=== PATIENT | female | born 1975 | race Caucasian/White ===

== ENCOUNTER → 2017-11-08 15:46 | Outpatient (CLI) | payer MEDICAID, SELFPAY | PROVIDERS: Family Provider Student in an Organized Health Care Education/Training Program; PCP Student in an Organized Health Care Education/Training Program; Visit Provider Otolaryngology Otolaryngology/Facial Plastic Surgery | DX: J03.90 Acute tonsillitis, unspecified (principal) | CPT/HCPCS: 87070 ==

== ENCOUNTER 2017-12-30 17:24 | Emergency (ER) | payer MEDICAID, SELFPAY ==
[2017-12-30 17:24] VITALS: BP 127/84; PULSE 101; RESP 16; TEMP 36.7; BMI 30.7
--- NOTE | 2017-12-30 17:37 | RAD_ITS ---
STUDY: X-RAY - LEFT FOOT CLINICAL: Female, 42 years old. left foot pain x 2 days, along 5th mt TECHNIQUE: 3 view(s) of the foot. COMPARISON: None. FINDINGS: There is a plantar calcaneal spur. Normal visualized subtalar, talonavicular, calcaneocuboid, tarsal and tarsometatarsal articulations. There is a metal sideplate transfixing the head of the first metatarsal bone to the base of the first proximal phalanx. Hardware appears intact. There are cortical screws holding the plate in place. Normal metatarsophalangeal joint of the great toe. Normal tibial and fibular sesamoid bones. Normal interphalangeal joint of the great toe. Normal phalanges of the great toe. Normal second through fifth metatarsophalangeal joints. Normal interphalangeal joints and phalanges of the lesser toes. The soft tissue structures are unremarkable. RAD/Foot min 3 Views IMPRESSION: There is a metal sideplate transfixing the head of the first metatarsal bone to the base of the first proximal phalanx. Hardware appears intact. There are cortical screws holding the plate in place. There are no acute findings. There is a calcaneal spur. Electronically Signed: Jm Archer MD at 18:21 EDT , Service support ,
--- NOTE | 2017-12-30 18:03 | ED.DCSUM_ITS ---
- ER Visit Summary Date of Service: 12/30/17 Chief Complaint: Left foot pain History of Present Illness: The patient is a 42 F who has had left foot pain for 3 days. Denies any specific injury. She has been using Tylenol and ice at home. She has a history of a first metatarsal repair but no other foot surgeries. Physical Examination: Vital signs reviewed. Left foot reveals tenderness to palpation at the distal fourth and fifth metatarsal area. No deformities. She does have painful range of motion. Pulses and sensation intact Test Results: X-rays per my interpretation are negative for fracture Emergency Department Course and Treatment: Patient will continue ice and Tylenol at home. She has multiple medication allergies. She does have a boot that she will wear. 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 It may contain incorrect words, spelling, and punctuation that were not noted in review of the chart prior to signing ED Disposition - Plan for ED Patient: Chief Complaint: Lower Extremity Injury Referrals: Lawson Tenorio DO [Primary Care Provider] -
--- NOTE | 2017-12-30 18:04 | ED.DEP ---
ED Disposition - Plan for ED Patient: Disposition: Home or Assisted Living Chief Complaint: Lower Extremity Injury Instructions: ED Contusion Foot Referrals: Lawson Tenorio DO [Primary Care Provider] -
== END 2017-12-30 18:50 | disposition home or self-care (01) ==
PROVIDERS: Emergency Provider Emergency Medicine; Family Provider Student in an Organized Health Care Education/Training Program; PCP Student in an Organized Health Care Education/Training Program
DX: M79.672 Pain in left foot (principal); J45.909 Unspecified asthma, uncomplicated; J44.9 Chronic obstructive pulmonary disease, unspecified; Z72.0 Tobacco use; Z79.51 Long term (current) use of inhaled steroids; Z79.1 Long term (current) use of non-steroidal anti-inflammatories (NSAID)
CPT/HCPCS: 73630; 99282

== ENCOUNTER → 2018-12-04 | Outpatient (CLI) | payer MEDICAID, SELFPAY ==
[2018-12-04 08:07] VITALS: BMI 30.7
--- NOTE | 2018-12-04 11:10 | RAD_ITS ---
STUDY: X-RAY - LEFT KNEE REASON FOR EXAM: Female, 43 years old. Pain TECHNIQUE: 4 view(s) of the knee. COMPARISON: None. FINDINGS: Normal visualized distal femur. Normal visualized proximal tibia and fibula. Normal proximal tibiofibular articulation. Normal medial femorotibial compartment. Normal lateral femorotibial compartment. Normal patellofemoral articulation. The soft tissue structures are unremarkable. RAD/Knee 4 or More Views IMPRESSION: Normal x-ray examination of the knee. Electronically Signed: Moris Garcia MD at 16:49 EDT Tel , Service support ,
== END | disposition home or self-care (01) ==
LOC: HPRAD 11:09
PROVIDERS: Family Provider Student in an Organized Health Care Education/Training Program; PCP Student in an Organized Health Care Education/Training Program; Referring Provider Orthopaedic Surgery; Visit Provider Orthopaedic Surgery
DX: M25.562 Pain in left knee (principal)
CPT/HCPCS: 73564

== ENCOUNTER 2021-04-09 13:49 | Emergency (ER) | payer MEDICAID, SELFPAY ==
[2021-04-09 13:50] VITALS: BP 140/90; PULSE 90; RESP 20; TEMP 36.4; O2SAT 100; BMI 34.9
[2021-04-09 14:01] VITALS: BP 140/90; PULSE 90; RESP 20; TEMP 36.4; O2SAT 100
--- NOTE | 2021-04-09 14:07 | CT_ITS ---
EXAM: CT ABDOMEN AND PELVIS WITHOUT INTRAVENOUS CONTRAST : 1975 CLINICAL INDICATION: Kidney Stone TECHNIQUE: Helically acquired images were obtained of the abdomen and pelvis without intravenous contrast. This CT exam was performed using one or more of the following dose reduction techniques: automated exposure control, adjustment of the mA and/or kV according to patient size, and/or use of iterative reconstruction technique. This report was created using my6sense report generation technology. COMPARISON: None. FINDINGS: LOWER THORAX: Unremarkable. Lung bases are clear. No cardiomegaly. No significant pericardial effusion. ABDOMEN: LIVER: Unremarkable. Homogeneous. GALLBLADDER AND BILE DUCTS: Unremarkable. No calcified gallstones. No gallbladder distention or wall edema. No intra- or extrahepatic biliary ductal dilation. PANCREAS: Unremarkable. No focal cystic mass. SPLEEN: Unremarkable. Normal size without focal cystic or solid mass. ADRENALS: Unremarkable. No nodules. KIDNEYS AND URETERS: Unremarkable. Normal renal size and position. No hydronephrosis. STOMACH AND BOWEL: Unremarkable. No stomach or bowel distention. No focal inflammatory change. PELVIS: APPENDIX: No evidence of acute appendicitis. BLADDER: Unremarkable. REPRODUCTIVE: Unremarkable as visualized. No mass. ABDOMEN and PELVIS: INTRAPERITONEAL SPACE: Unremarkable. No ascites or other fluid collection. No free air. BONES/JOINTS: Unremarkable. No suspicious lytic or blastic abnormality. SOFT TISSUES: Unremarkable. No discrete abdominal or pelvic wall hernia. VASCULATURE: Unremarkable. Abdominal aorta is non-dilated. LYMPH NODES: Unremarkable. No enlarged lymph nodes. TUBES, LINES AND DEVICES: There is an intrauterine device in place. CT/Abdomen/Pelvis without Cont IMPRESSION: No acute findings in the abdomen or pelvis. Individualized dose optimization techniques were used for this CT. at 1517 Reported and signed by: Tom Paul MD Electronically Signed: Tom Paul MD at 15:16 EDT Tel , Service support ,
--- NOTE | 2021-04-09 14:08 | EDS_ITS ---
HPI History of Present Illness Chief Complaint: Flank Pain Informant: patient Narrative Narrative: 46-year-old female presents the emergency department after being referred here by urgent care. She tells me for 4 days she has had pain in her left flank. Nonradiating. Worse with certain movements. She states it has been constant but getting worse. The patient also states that she has seen some blood in her urine. No previous history of kidney stones. She does note a history of renal cyst. No nausea vomiting diarrhea. No fevers. No rashes. [facility] Medical History Asthma Bipolar 1 disorder Chronic kidney disease (CKD) Home Medications fluoxetine 40 mg PO DAILY 12/19/13 [History Last Taken Unknown] fluticasone propionate 2 spray NASAL DAILY 07/08/16 [History Last Taken Unknown] multivitamin 1 ea PO DAILY 07/08/16 [History Last Taken Unknown] scopolamine base 1 patch TRANSDERM. Q3D PRN 07/08/16 [History Last Taken Unknown] epinephrine 0.3 mg IM X1 12/30/17 [History Last Taken Unknown] pravastatin 40 mg PO DAILY 12/30/17 [History Last Taken Unknown] albuterol sulfate 90 mcg/actuation aerosol inhaler 1 puff INHALATION Q4H PRN g 12/04/18 [History Last Taken Unknown] aripiprazole 30 mg tablet 30 mg PO DAILY 12/04/18 [History Last Taken Unknown] buspirone 15 mg tablet PO 30 Days #60 tab 12/04/18 [History Last Taken Unknown] diphenhydramine HCl 25 mg capsule 25 mg PO Q8H PRN 12/04/18 [History Last Taken Unknown] mometasone-formoterol HFA 100 mcg-5 mcg/actuation aerosol inhaler 2 puff INHALATION BID 12/04/18 [History Last Taken Unknown] oxybutynin chloride 5 mg tablet 5 mg PO DAILY 30 Days #90 tab 12/04/18 [History Last Taken Unknown] carbamazepine [Tegretol] 200 mg PO DAILY 04/09/21 [History Last Taken Unknown] Allergy/AdvReac Type Severity Reaction Status Date / Time meloxicam [From Mobic] Allergy Unknown Verified 04/09/21 13:58 tramadol HCl [From Ultram] Allergy Unknown Verified 04/09/21 13:58 acetaminophen [From Percocet] AdvReac Swelling Verified 04/09/21 13:58 oxycodone [From Percocet] AdvReac Swelling Verified 04/09/21 13:58 Social History (Updated 04/09/21 @ 14:[address] Saad Mcconnell, DO) Smoking Status: Current some day smoker tobacco type: e-cigarettes substance use type: does not use ROS ROS ED Constitutional Constitutional ED: Denies chills or weight loss Eyes Eyes: Denies change in vision or diplopia ENT ENT ED: Denies ear pain, rhinorrhea or sore throat Cardiovascular Cardiovascular: Denies chest pain, orthopnea, palpitations or racing heartbeat Respiratory/Chest Respiratory/Chest: Denies cough, dyspnea or orthopnea Gastrointestinal Gastrointestinal: Denies abdominal pain, diarrhea, nausea or vomiting Genitourinary Genitourinary ED: Denies dysuria, hematuria or urinary frequency Musculoskeletal Musculoskeletal: Reports back pain; Denies arthralgias or myalgias Integumentary Denies abscess or rash Neurologic Neurologic: Denies headache(s) or weakness Psychiatric Psychiatric: Denies anxiety, depression, suicidal ideation or suicidal thoughts Endocrine Endocrinology: Denies polydipsia, polyphagia or polyuria Allergic/Immunologic Allergic/Immunologic ED: Denies mouth swelling, tongue swelling or urticaria EXAM Physical Exam Const Vital Signs: 04/09/21 13:50 04/09/21 14:01 Temperature 97.5 F L 97.5 F L Temperature Source Temporal Temporal Pulse Rate 90 90 Respiratory Rate 20 H 20 H Blood Pressure 140/90 H 140/90 H Blood Pressure Mean 106 106 Pulse Ox 100 100 Oxygen Delivery Method Room Air Room Air Positive well nourished, well developed and obese General Appearance ED: well developed Nutritional Appearance: obese HEENT Reports normocephalic, head/scalp atraumatic and moist mucous membranes Eyes PERRL and EOMs intact bilaterally Neck no lymphadenopathy, supple and no JVD Resp normal respiratory effort and clear to auscultation bilaterally Cardio regular rate, regular rhythm and no murmurs GI normal to inspection, nondistended, normoactive bowel sounds and non-tender Palpation: soft Back/Spine normal ROM Back/Spine Narrative: Tender to palpation over the left high lumbar paraspinal musculature. No distinct CVA tenderness. No visualized rashes. Extremity normal to inspection General Extremety ED: Negative for edema General Extremity: Negative for edema Neuro oriented x3 and CN's II-XII intact bilaterally Sensorium / Orientation: alert Motor Exam: strength 5/5 throughout Psych mental status grossly normal Mood & Affect: Negative for depressed or tearful Skin no rashes or lesions noted and no wounds MDM MDM MDM Narrative Medical decision making narrative: Basic blood work showed a white count of 6.0. Creatinine 0.77. Urinalysis does not show any hematuria or overt infection. CT the abdomen pelvis with old oral or IV contrast was obtained to evaluate for the presence of ureterolithiasis. This was negative. Patient received Toradol for pain. At this point I do not see an obvious cause for the patient's pain given that it can be brought on with certain movements this could be musculoske letal in nature. Would recommend anti-inflammatories follow-up with primary care. Lab Data Attestation: I reviewed the patient's lab results. Labs: Laboratory Results - last 24 hr 04/09/21 04/09/21 04/09/21 13:55 14:15 14:15 WBC 6.0 RBC 4.40 Hgb 14.2 Hct 40.5 MCV 92.0 MCH 32.3 H MCHC 35.1 RDW Std Deviation 41.0 RDW Coeff of Yue 12.1 Plt Count 213 MPV 10.1 Immature Gran % (Auto) 0.700 Neut % (Auto) 66.2 Lymph % (Auto) 22.6 [place] % (Auto) 7.7 Eos % (Auto) 2.3 Baso % (Auto) 0.5 Absolute Neuts (auto) 4.0 Absolute Lymphs (auto) 1.35 Nucleated RBC % 0 Sodium 137 Potassium 3.8 Chloride 107 Carbon Dioxide 24.0 Anion Gap 6 BUN 9 Creatinine 0.77 Estim Creat Clear Calc 85.46 Est GFR (MDRD) Af Amer 103 Est GFR (MDRD) Non-Af 85 BUN/Creatinine Ratio 11.6 Glucose 105 Calcium 9.0 Urine Color Yellow Urine Clarity Clear Urine pH 6.5 Ur Specific [place] 1.010 Urine Protein Negative Urine Glucose (UA) Normal Urine Ketones Negative Urine Occult Blood 10 H Urine Nitrite Negative Urine Bilirubin Negative Urine Urobilinogen Normal Ur Leukocyte Esterase Negative Urine RBC 0 SEEN Urine WBC 0 SEEN Ur Squamous Epith Cells 0-5 SEEN Urine Bacteria 0 SEEN Urine Mucus 0 SEEN Discharge Plan Triage Chief Complaint: Flank Pain ED Provider: Saad Mcconnell Dx/Rx/DC Orders Prescriptions: No Action oxybutynin chloride 5 mg tablet 5 mg PO DAILY 30 Days Qty: 90 RF: 0 aripiprazole [Abilify] 30 mg tablet 30 mg PO DAILY RF: 0 diphenhydramine HCl [Benadryl] 25 mg capsule 25 mg PO Q8H PRN (Reason: Allergic Symptoms) RF: 0 buspirone 15 mg tablet PO 30 Days Qty: 60 RF: 0 Dulera 100-5 mcg/actuation HFA aerosol inhaler 2 puff INHALATION BID RF: 0 albuterol sulfate [Ventolin HFA] 90 mcg/actuation HFA aerosol inhaler 1 puff INHALATION Q4H PRN (Reason: Shortness Of Breath) RF: 0 fluoxetine 20 MG capsule 40 mg PO DAILY RF: 0 multivitamin 1 EACH tablet 1 ea PO DAILY RF: 0 scopolamine base 1.5 MG patch 1 patch TRANSDERM. Q3D PRN (Reason: CAR SICKNESS) RF: 0 fluticasone propionate 1 SPRAY spray,suspension 2 spray NASAL DAILY RF: 0 pravastatin 40 MG tablet 40 mg PO DAILY RF: 0 epinephrine 0.3 MG syringe 0.3 mg IM X1 RF: 0 carbamazepine [Tegretol] 200 mg Tablet 200 mg PO DAILY RF: 0 Primary Care Provider: Lawson Tenorio
[2021-04-09 14:11] LABS: Bacteria 0 SEEN /hpf (None Seen); Mucous, Urine 0 SEEN /hpf (<or=2+); Red Blood Cells-Urine 0 SEEN /hpf (0-5); White Blood Cells 0 SEEN /hpf (0-5)
[2021-04-09 14:13] LABS: Color, Urine Yellow (Yellow); Glucose, Dipstick Normal (Normal); Ketone-Dipstick Negative (Negative); Leukocyte Esterase-Dipstick Negative /ul (Negative); Nitrite-Dipstick Negative (Negative); Occult Blood-Urine 10 /ul (Negative); Protein-Dipstick Negative (Negative); Urine Bilirubin Dipstick Negative (Negative); Urine Clarity Clear (Clear); Urine Urobilinogen Normal (Normal); Urine pH 6.5 (5.0 - 8.0)
[2021-04-09] MEDS: Ketorolac 30 MG/ML Syringe IV (14:15)
[2021-04-09 14:21] LABS: Squamous Epithelial Cells - UA 0-5 SEEN /hpf (5-10)
[2021-04-09 14:23] LABS: Absolute Lymphocyte Count 1.35 X10^3/uL (0.83-4.51); Basophil# 0.03 X10^3/uL; Basophil% 0.5 % (0-1); Eosinophil# 0.14 X10^3/uL; Eosinophils% 2.3 % (0-5); Hematocrit 40.5 % (37-47); Hemoglobin 14.2 g/dL (12.0-15.0); Lymphocyte # 1.35 X10^3/ul (0.83-4.51); Lymphocyte % 22.6 % (19-41); Mean Corp Hgb Conc 35.1 g/dL (32-36); Mean Corpuscular Hgb 32.3 pg (27.0-32.0); Mean Platelet Vol. 10.1 fl (6.2-12.0); Monocyte# 0.46 X10^3/uL; Monocyte% 7.7 % (0-10); NRBC Flagged by Analyzer 0 % (0-5); Neutrophil # 3.96 X10^3/uL (2.7-7.7); Neutrophil % 66.2 % (47-70); Platelet Count 213 K/mm3 (150-450); RBC Distribution Width CV 12.1 % (11.6-14.6)
[2021-04-09 14:39] LABS: Anion Gap 6 (5-15); BUN 9 mg/dL (7-18); BUN/Creat Ratio 11.6 RATIO (10-20); Chloride 107 mmol/L (98-107); Creatinine, Serum 0.77 mg/dL (0.55-1.02); EST Glomerular Filtration Rate 85 mL/min (>60); Est Glom Filt Rate - Afr Amer 103 mL/min (>60); Estimated Creatinine Clearance 85.46 ml/min; Glucose 105 mg/dL (74-106); Potassium 3.8 mmol/L (3.5-5.1); Sodium Level 137 mmol/L (136-145)
== END 2021-04-09 15:29 | disposition home or self-care (01) ==
PROVIDERS: Emergency Provider Emergency Medicine; PCP Student in an Organized Health Care Education/Training Program
DX: R10.9 Unspecified abdominal pain (principal); F17.209 Nicotine dependence, unspecified, with unspecified nicotine-induced disorders; E66.9 Obesity, unspecified; J45.909 Unspecified asthma, uncomplicated; F31.9 Bipolar disorder, unspecified; Z79.51 Long term (current) use of inhaled steroids; Z79.899 Other long term (current) drug therapy
CPT/HCPCS: 74176; 80048; 81001; 85025; 96374; 99283; A4216

== ENCOUNTER → 2022-06-19 | Outpatient (CLI) | payer MEDICARE, MEDICAID, SELFPAY ==
[2022-06-19 16:56] LABS: D-Dimer Quantitative (DVT/PE) 0.34 FEU/ug/m (0.27-0.49)
== END | disposition home or self-care (01) ==
PROVIDERS: PCP Student in an Organized Health Care Education/Training Program; Visit Provider Emergency Medicine
DX: M54.9 Dorsalgia, unspecified (principal)
CPT/HCPCS: 85379

== ENCOUNTER 2022-06-22 16:35 | Emergency (ER) | payer MEDICARE, MEDICAID, SELFPAY ==
[2022-06-22 16:36] VITALS: BP 143/86; PULSE 109; RESP 14; TEMP 37.4; O2SAT 97; BMI 32.3
--- NOTE | 2022-06-22 17:12 | ED.VIS.DYS ---
HPI History of Present Illness Chief Complaint: Asthma Narrative Narrative: Patient with past medical history of asthma presents with shortness of breath that is not relieved by her inhaler. She has taken prednisone in the past but has not been on it for quite some time. She states her symptoms began last evening around dinnertime. It kept her up all night. She has a cough that may be occasionally productive. She has low-grade fever and increasing shortness of breath. She denies any chest pain with this. No other symptoms. She quit smoking 2 years ago. She presents because of her shortness of breath with history of asthma. [facility] Medical History Asthma Bipolar 1 disorder Chronic kidney disease (CKD) Home Medications fluoxetine 20 mg capsule 40 mg PO DAILY 12/19/13 [History Last Taken Unknown] fluticasone propionate 50 mcg/actuation nasal spray,suspension 2 spray NASAL DAILY 07/08/16 [History Last Taken Unknown] multivitamin 1 ea PO DAILY 07/08/16 [History Last Taken Unknown] scopolamine base 1 mg over 3 days transdermal patch 1 patch TRANSDERM. Q3D PRN CAR SICKNESS 07/08/16 [History Last Taken Unknown] epinephrine 0.3 mg/0.3 mL injection, auto-injector 0.3 mg IM X1 12/30/17 [History Last Taken Unknown] pravastatin 40 mg tablet 40 mg PO DAILY 12/30/17 [History Last Taken Unknown] albuterol sulfate 90 mcg/actuation aerosol inhaler (Ventolin HFA) 1 puff inhalation Q4H PRN Shortness Of Breath 12/04/18 [History Last Taken Unknown] aripiprazole 30 mg tablet (Abilify) 30 mg PO DAILY 12/04/18 [History Last Taken Unknown] buspirone 15 mg tablet PO 30 days #60 tabs 12/04/18 [History Last Taken Unknown] diphenhydramine HCl 25 mg capsule (Benadryl) 25 mg PO Q8H PRN Allergic Symptoms 12/04/18 [History Last Taken Unknown] mometasone-formoterol HFA 100 mcg-5 mcg/actuation aerosol inhaler (Dulera) 2 puff inhalation BID 12/04/18 [History Last Taken Unknown] oxybutynin chloride 5 mg tablet 5 mg PO DAILY 30 days #90 tabs 12/04/18 [History Last Taken Unknown] carbamazepine 200 mg tablet (Tegretol) 200 mg PO DAILY 04/09/21 [History Last Taken Unknown] cyclobenzaprine 10 mg tablet 10 mg PO TID PRN Muscle Spasm #15 TABLETS 04/09/21 [Rx Last Taken Unknown] ketorolac 10 mg tablet 10 mg PO TID PRN pain 5 days #15 tabs 04/09/21 [Rx Last Taken Unknown] prednisone 20 mg tablet 40 mg PO DAILY #14 tabs 06/22/22 [Rx Last Taken Unknown] Allergy/AdvReac Type Severity Reaction Status Date / Time meloxicam [From Mobic] Allergy Unknown Verified 06/22/22 16:38 tramadol HCl [From Ultram] Allergy Unknown Verified 06/22/22 16:38 acetaminophen [From Percocet] AdvReac Swelling Verified 06/22/22 16:38 oxycodone [From Percocet] AdvReac Swelling Verified 06/22/22 16:38 Social History Smoking Status: Current some day smoker tobacco type: e-cigarettes substance use type: does not use ROS ROS ED ROS Narrative Constitutional: No fever, no chills. HEENT: No sore throat. No neck pain. No loss of vision. No rhinorrhea. Cardiovascular: No chest pain. No palpitations. No pedal edema. Respiratory: Occasional cough, positive shortness of breath. Abdominal: No abdominal pain. No nausea. No vomiting. Genitourinary: No dysuria. No hematuria. Musculoskeletal: No myalgias. No arthralgias. Neurologic: No headaches. No dizziness. No lightheadedness. Skin: No rash. No change in color. Psychiatric: No depression. No anxiety. EXAM Physical Exam Narrative Exam Narrative: Afebrile. Vital signs noted. HEENT: Normocephalic. Atraumatic. PERRL, EOMI. Neck soft and supple. No point tenderness or step off. Cardiovascular: Regular rate and rhythm. No murmurs, rubs, or gallops appreciated. Respiratory: No tachypnea. Speaking in full sentences. Moving a good amount of air. Occasional expiratory wheeze. Gastrointestinal: Abdomen soft, nontender, with normoactive bowel sounds. No rebound or guarding. Neurological: Awake. Alert. Nonfocal, nonlateralizing. Skin: No rash. Normal color. No pallor. Musculoskeletal: No pedal edema. Full range of motion extremities. Const Vital Signs: 06/22/22 16:36 06/22/22 17:30 06/22/22 17:36 Temperature 99.4 F H Temperature Source Temporal Pulse Rate 109 H 105 H Respiratory Rate 14 20 H Respiratory Effort Respiratory Pattern Blood Pressure 143/86 H 128/82 H Blood Pressure Mean 105 97 Pulse Ox 97 93 Oxygen Delivery Method Room Air Room Air 06/22/22 17:36 Temperature Temperature Source Pulse Rate Respiratory Rate Respiratory Effort Short of Breath Respiratory Pattern Tachypnea Blood Pressure Blood Pressure Mean Pulse Ox Oxygen Delivery Method Room Air MDM MDM MDM Narrative Medical decision making narrative: Pulse ox is 97% on room air without evidence of hypoxia. Given that her inhalers are not effective, I will obtain a chest x-ray along with upper respiratory swabs. She will be given a DuoNeb aerosolized treatment and prednisone 60 mg orally. Chest x-ray interpreted by myself shows no evidence of pneumonia. I do not feel antibiotics are indicated. Her respiratory swabs are negative. After her prednisone and aerosolized treatment, she feels improved. At this point in time, she will be discharged with a prednisone burst for 7 days of 40 mg. She has enough albuterol inhalers at home. Should I feel she can be discharged safely home with follow-up. Return instructions were reviewed. Disposition is discharged home in stable condition. Radiography Diagnostic Testing: Clinical Impression(s) from Imaging Studies Chest X-Ray 06/22/22 17:14 IMPRESSION: Normal x-ray examination of the chest. Electronically Signed: Manjinder Martinez MD at 17:35 EST , Discharge Plan Triage Chief Complaint: Asthma ED Provider: Aidan Morgan Dx/Rx/DC Orders Clinical Impression: Asthma, URI (upper respiratory infection) Instructions: ED Asthma, Acute (Adult), ED URI, Viral W/ Wheezing (Adult) Prescriptions: New prednisone 20 mg tablet 40 mg PO DAILY Qty: 14 0RF No Action oxybutynin chloride 5 mg tablet 5 mg PO DAILY 30 Days Qty: 90 aripiprazole [Abilify] 30 mg tablet 30 mg PO DAILY diphenhydramine HCl [Benadryl] 25 mg capsule 25 mg PO Q8H PRN (Reason: Allergic Symptoms) buspirone 15 mg tablet PO 30 Days Qty: 60 Dulera 100-5 mcg/actuation HFA aerosol inhaler 2 puff INHALATION BID albuterol sulfate [Ventolin HFA] 90 mcg/actuation HFA aerosol inhaler 1 puff INHALATION Q4H PRN (Reason: Shortness Of Breath) fluoxetine 20 MG capsule 40 mg PO DAILY multivitamin 1 EACH tablet 1 ea PO DAILY scopolamine base 1.5 MG patch 1 patch TRANSDERM. Q3D PRN (Reason: CAR SICKNESS) fluticasone propionate 1 SPRAY spray,suspension 2 spray NASAL DAILY pravastatin 40 MG tablet 40 mg PO DAILY epinephrine 0.3 MG syringe 0.3 mg IM X1 carbamazepine [Tegretol] 200 mg Tablet 200 mg PO DAILY ketorolac 10 mg tablet 10 mg PO TID PRN (Reason: pain) 5 Days Qty: 15 0RF cyclobenzaprine [cyclobenzaprine] 10 MG tablet 10 mg PO TID PRN (Reason: Muscle Spasm) Qty: 15 0RF Primary Care Provider: Lawson Tenorio Referrals: Lawson Tenorio DO [Primary Care Provider] - 3-5 Days if not improving Disposition Disposition: Home, Self Care
--- NOTE | 2022-06-22 17:14 | RAD_ITS ---
STUDY: X-RAY CHEST REASON FOR EXAM: Female, 47 years old. Shortness of Breath TECHNIQUE: Single frontal view of the chest. COMPARISON: July 08, 2016 FINDINGS: The lungs are clear and expanded. There is no demonstrated pleural abnormality. Normal size heart. Normal mediastinum and red. Normal visualized pulmonary arteries. Normal visualized aortic arch and descending thoracic aorta. Normal visualized thoracic spine. Normal visualized ribs, clavicles, and shoulders. There is no demonstrated abnormality of the visualized soft tissue structures of the upper abdomen. RAD/Chest 1 View (Portable) IMPRESSION: Normal x-ray examination of the chest. Electronically Signed: Manjinder Martinez MD at 17:35 EST ,
[2022-06-22] MEDS: predniSONE 20 MG Tablet 60 MG PO (17:18)
[2022-06-22] MEDS: Ipratropium/Albuterol Sulfate 3 ML AMPUL.NEB INHALATION (17:26)
[2022-06-22 17:30] VITALS: RESP 20
[2022-06-22 17:36] VITALS: BP 128/82; PULSE 105; O2SAT 93
[2022-06-22 18:40] VITALS: PULSE 95
== END 2022-06-22 18:57 | disposition home or self-care (01) ==
PROVIDERS: Emergency Provider Emergency Medicine; PCP Student in an Organized Health Care Education/Training Program; Visit Provider Emergency Medicine
DX: J45.909 Unspecified asthma, uncomplicated (principal); J06.9 Acute upper respiratory infection, unspecified; F17.290 Nicotine dependence, other tobacco product, uncomplicated
CPT/HCPCS: 71045; 87428; 87807; 94640; 99283

== ENCOUNTER → 2023-04-18 | Outpatient (CLI) | payer MEDICARE, MEDICAID, SELFPAY ==
--- NOTE | 2023-04-17 | ASPSI_PTH ---
[id number] AGE/SX: 48/F ROOM: RE04/18/[address]: Dr. Lea Nielson MD : 1975 BED: DIS: 04/18/2023 SPEC #: [id number] RECD: 04/18/23 12:31 STATUS: AMPARO KENDRICK #: [id number] [place]: 04/17/23 00:[address]: Lea Nielson DEPT: CYTOLOGY RECD BY: Shena Holland ENTERED: 04/18/23 13:33 SP TYPE: OLI GUADALUPE DR: Dr. Lawson Tenorio, DO Tissues: A - Thyroid gland, NOS B - Thyroid gland, NOS Procedures: Surgery Specimen Level IV Cytospin Fluid Cytology Other HEADER OPERATION: Fine needle aspiration right thyroid PRE-OP DIAGNOSIS: Abnormal thyroid ultrasound TISSUE SUBMITTED: A - Right thyroid fluid, B - Right thyroid x8 slides DIAGNOSIS CYTOLOGY A. Right thyroid fluid, fine needle aspiration (cytospin and cell block): Negative for malignant cells. Bloody specimen. B. Right thyroid, fine needle aspiration (smears): Nondiagnostic specimen, [employer] Category I. See comment. SJ:jennifer 04/19/2023 COMMENT B. The specimen consists of scant colloid and rare cluster of benign follicular cells. Correlation with clinical, radiologic findings and appropriate follow up are necessary. The [employer] System for thyroid diagnostic categorization was used in the evaluation of this case. CYTOLOGY STUDY Slides are reviewed. CYTOLOGY GROSS A - Received is 15 ml of brown cloudy fluid labeled with the patient's name and and designated per the requisition as right thyroid. Submitted for cytology preparation including cell block. B - Received are 8 smears labeled with the patient's name and designated per the requisition as right thyroid. Submitted for staining. / jennifer 04/18/2023 TC: Cannot code CPT: 76908, 36463 x2
== END | disposition home or self-care (01) ==
LOC: LABSPEC 12:43
PROVIDERS: PCP Student in an Organized Health Care Education/Training Program; Referring Provider Surgery; Visit Provider Surgery
DX: R94.6 Abnormal results of thyroid function studies (principal)
CPT/HCPCS: 88108; 88161; 88305

== ENCOUNTER 2023-11-17 13:21 | Emergency (ER) | payer MEDICARE, MEDICAID, SELFPAY ==
[2023-11-17 13:21] VITALS: BP 144/98; PULSE 103; RESP 16; TEMP 35.8; O2SAT 99; BMI 30.9
--- NOTE | 2023-11-17 13:42 | CT_ITS ---
STUDY: CT BRAIN WITHOUT CONTRAST REASON FOR EXAM: Female, 48 years old. Trauma RADIATION DOSAGE (If Supplied By Facility): CTDIvol = ( 44.99 ) mGy, DLP = ( 711.75 ) mGycm TECHNIQUE: Transaxial CT imaging of the brain was performed without administration of intravenous contrast material. Individualized dose optimization techniques were used for this CT. COMPARISON: No relevant priors. FINDINGS: Normal soft tissue structures. Normal calvarium. Normal size ventricles and extra-axial spaces for the patient''s age. Normal white matter tracts of the cerebral hemispheres. Normal basal ganglia and thalami. Normal brainstem. Normal cerebellum. There is no intracranial hemorrhage. There are no findings of an acute ischemic infarction. Normal visualized paranasal sinuses. CT/Brain/Head without Contrast IMPRESSION: Normal unenhanced CT scan of the brain. Electronically Signed: Arnoldo Plunkett MD at 14:34 EDT ,
--- NOTE | 2023-11-17 13:43 | EX.ED.VIS.EY ---
HPI History of Present Illness Chief Complaint: Eye Problem Narrative Narrative: 48-year-old female past medical history of bipolar disorder, hypertriglyceridemia, presents with dilation of her right pupil that she noticed this morning. She relates history that on , 3 days ago, she was trying to organize her closet, stood up quickly and hit her head on the metal shelf/rack/bar. There was no loss of consciousness. She did not complain of any vision problems at that time. She does not take blood thinners. She noticed this morning after she woke up, that her right pupil was dilated and she has blurry vision out of it. She denies any headache, no nausea or vomiting. No eye pain. She went to urgent care, who directed her to the ED because she states they do not deal with trauma. She denies any exacerbating or alleviating factors but has noticed that her right eye will not constrict or dilate anymore. [facility] Medical History Asthma Bipolar 1 disorder Chronic kidney disease (CKD) Home Medications fluoxetine 20 mg capsule 40 mg PO DAILY 12/19/13 [History Last Taken Unknown] fluticasone propionate 50 mcg/actuation nasal spray,suspension 2 spray NASAL DAILY 07/08/16 [History Last Taken Unknown] multivitamin 1 ea PO DAILY 07/08/16 [History Last Taken Unknown] scopolamine base 1 mg over 3 days transdermal patch 1 patch TRANSDERM. Q3D PRN CAR SICKNESS 07/08/16 [History Last Taken Unknown] epinephrine 0.3 mg/0.3 mL injection, auto-injector 0.3 mg IM X1 12/30/17 [History Last Taken Unknown] pravastatin 40 mg tablet 40 mg PO DAILY 12/30/17 [History Last Taken Unknown] albuterol sulfate 90 mcg/actuation aerosol inhaler (Ventolin HFA) 1 puff inhalation Q4H PRN Shortness Of Breath 12/04/18 [History Last Taken Unknown] aripiprazole 30 mg tablet (Abilify) 30 mg PO DAILY 12/04/18 [History Last Taken Unknown] buspirone 15 mg tablet PO 30 days #60 tabs 12/04/18 [History Last Taken Unknown] diphenhydramine HCl 25 mg capsule (Benadryl) 25 mg PO Q8H PRN Allergic Symptoms 12/04/18 [History Last Taken Unknown] mometasone-formoterol HFA 100 mcg-5 mcg/actuation aerosol inhaler (Dulera) 2 puff inhalation BID 12/04/18 [History Last Taken Unknown] oxybutynin chloride 5 mg tablet 5 mg PO DAILY 30 days #90 tabs 12/04/18 [History Last Taken Unknown] carbamazepine 200 mg tablet (Tegretol) 200 mg PO DAILY 04/09/21 [History Last Taken Unknown] cyclobenzaprine 10 mg tablet 10 mg PO TID PRN Muscle Spasm #15 TABLETS 04/09/21 [Rx Last Taken Unknown] ketorolac 10 mg tablet 10 mg PO TID PRN pain 5 days #15 tabs 04/09/21 [Rx Last Taken Unknown] prednisone 20 mg tablet 40 mg (2 x 20 mg) PO DAILY #14 tabs 06/22/22 [Rx Last Taken Unknown] Allergy/AdvReac Type Severity Reaction Status Date / Time meloxicam [From Mobic] Allergy Unknown Verified 11/17/23 13:24 tramadol HCl [From Ultram] Allergy Unknown Verified 11/17/23 13:24 acetaminophen [From Percocet] AdvReac Swelling Verified 11/17/23 13:24 oxycodone [From Percocet] AdvReac Swelling Verified 11/17/23 13:24 Social History Smoking Status: Current some day smoker tobacco type: cigarettes and e-cigarettes substance use type: does not use ROS ROS ED ROS Narrative Constitutional: No fever, no chills. HEENT: No sore throat. No neck pain. No loss of vision. No rhinorrhea. Blurry vision out of right eye. Right pupil will not dilate or constrict. No eye pain. Cardiovascular: No chest pain. No palpitations. No pedal edema. Respiratory: No cough, no shortness of breath. Abdominal: No abdominal pain. No nausea. No vomiting. Genitourinary: No dysuria. No hematuria. Musculoskeletal: No myalgias. No arthralgias. Positive recent head trauma. Neurologic: No headaches. No dizziness. No lightheadedness. Skin: No rash. No change in color. Psychiatric: No depression. No anxiety. EXAM Physical Exam Narrative Exam Narrative: Afebrile. Vital signs noted. HEENT: Normocephalic. Atraumatic. EOMI. Neck soft and supple. No point tenderness or step off. Right pupil midway fixed and dilated. No consensual restriction. Cardiovascular: Regular rate and rhythm. No murmurs, rubs, or gallops appreciated. Respiratory: No tachypnea. Lungs clear to auscultation bilaterally. Gastrointestinal: Abdomen soft, nontender, with normoactive bowel sounds. No rebound or guarding. Neurological: Awake. Alert. Nonfocal, nonlateralizing. Skin: No rash. Normal color. No pallor. Musculoskeletal: No pedal edema. Full range of motion extremities. Const Vital Signs: 11/17/23 13:21 Temperature 96.5 F L Temperature Source Temporal Pulse Rate 103 H Respiratory Rate 16 Blood Pressure 144/98 H Blood Pressure Mean 113 Pulse Ox 99 Oxygen Delivery Method Room Air MDM MDM MDM Narrative Medical decision making narrative: In the differential diagnosis is glaucoma versus neurological deficit from head trauma. I have low concern for traumatic iritis as she did not directly hit her orbit. Visual acuity will be obtained along with head CT. I will obtain intraocular pressure with Asa-Pen after tetracaine. I reviewed the CT imaging and radiology report of the CT of the brain and there is no acute process. I did attempt Asa-Pen readings, and they were inconsistent, one being 4, the other being 49, and as high as 50. With concern for any acute angle glaucoma, I discussed the patient with the brine purifier on-call, Dr. Lara. As there is no extreme conjunctival injection, no eye pain, there may have been an error in Asa-Pen, and she highly doubts that this is an acute angle glaucoma because of the lack of pain. It may have been pharmacologically induced as well. At this point in time, in discussion with the patient, she declines taking intraocular pressures of the left eye, and she feels comfortable going home with follow-up to ophthalmology for another exam in 2 days. She is to return with any eye pain, new or worsening symptoms. She is comfortable with the plan. Disposition is discharged home in stable condition. Management Discussion w/another healthcare provider: [facility] (Ophthalmology, Dr. Lara) Discharge Plan Triage Chief Complaint: Eye Problem ED Provider: Aidan Morgan Dx/Rx/DC Orders Clinical Impression: Dilated pupil Instructions: How the Eye Works Prescriptions: No Action oxybutynin chloride 5 mg tablet 5 mg PO DAILY 30 Days Qty: 90 aripiprazole [Abilify] 30 mg tablet 30 mg PO DAILY diphenhydramine HCl [Benadryl] 25 mg capsule 25 mg PO Q8H PRN (Reason: Allergic Symptoms) buspirone 15 mg tablet PO 30 Days Qty: 60 Dulera 100-5 mcg/actuation HFA aerosol inhaler 2 puff INHALATION BID albuterol sulfate [Ventolin HFA] 90 mcg/actuation HFA aerosol inhaler 1 puff INHALATION Q4H PRN (Reason: Shortness Of Breath) fluoxetine 20 MG capsule 40 mg PO DAILY multivitamin 1 EACH tablet 1 ea PO DAILY scopolamine base 1.5 MG patch 1 patch TRANSDERM. Q3D PRN (Reason: CAR SICKNESS) fluticasone propionate 1 SPRAY spray,suspension 2 spray NASAL DAILY pravastatin 40 MG tablet 40 mg PO DAILY epinephrine 0.3 MG syringe 0.3 mg IM X1 carbamazepine [Tegretol] 200 mg Tablet 200 mg PO DAILY ketorolac 10 mg tablet 10 mg PO TID PRN (Reason: pain) 5 Days Qty: 15 0RF cyclobenzaprine [cyclobenzaprine] 10 MG tablet 10 mg PO TID PRN (Reason: Muscle Spasm) Qty: 15 0RF prednisone 20 mg tablet 40 mg PO DAILY Qty: 14 0RF Primary Care Provider: Lawson Tenorio Referrals: Lawson Tenorio DO [Primary Care Provider] - Marialuisa Lara MD [Med Staff - Active Staff] - 2 Days Activity Restrictions/Additional Instructions: Return with eye pain, loss of vision, new or worsening symptoms. Disposition Disposition: Home, Self Care
[2023-11-17] MEDS: Tetracaine 0.5% Ophthalmic Bottle 1 DRP OPHTHALMIC (14:09)
[2023-11-17 15:06] VITALS: BP 134/94; PULSE 95; RESP 19; TEMP 36.3; O2SAT 97
== END 2023-11-17 15:08 | disposition home or self-care (01) ==
PROVIDERS: Emergency Provider Emergency Medicine; PCP Student in an Organized Health Care Education/Training Program; Visit Provider Emergency Medicine
DX: H57.04 Mydriasis (principal); F31.9 Bipolar disorder, unspecified; H53.8 Other visual disturbances; F17.210 Nicotine dependence, cigarettes, uncomplicated; F17.290 Nicotine dependence, other tobacco product, uncomplicated; N18.9 Chronic kidney disease, unspecified
CPT/HCPCS: 70450; 99283